=== PATIENT | female | born 1995 | race Caucasian/White ===

== ENCOUNTER 2017-09-05 09:20 | Emergency (ER) | payer BC, SELFPAY ==
[2017-09-05 09:38] VITALS: BP 118/66; PULSE 90; RESP 20; TEMP 36.3; O2SAT 96; BMI 18.1
--- NOTE | 2017-09-05 10:11 | HMH.EDUTC ---
[facility] [place] Clinical Impression: Viral illness Disposition: Home, Self-Care Condition on Discharge: Good Instructions: DI for Viral Upper Respiratory Infection -- Adult Additional Instructions: * No sign of bacterial infection. Likely viral. Virus can take 7-14 days to run their course. Still the possibility of mono with a false negative today so be sure if symptoms persist longer then 7-10 days or you are not seeing any improvement over the next 3-4 days, you follow up. * Monitor Temp. Tylenol every 4 hours as needed no more then 5 times a day or 4000mg in 24 hours and/or ibuprofen every 6 hours as needed no more then 3200mg in 24 hours (as long as your primary care doctor has told you that it is ok to take both) for fever/aches/pain. ER if fever no less than 101 despite tylenol and ibuprofen * Encourage fluids, water, gatorade, powerade, pedialyte if infant/toddler/child * warm salt water gargles * warm fluids * sore throat lozenges * sleep elevated * humidifier/vaporizer * Bromfed may cause drowsiness. Know how it effects you (or your child) before driving, caring for small children, or sending your child to school. No other antihistamines/allergy medications while taking bromfed. * * Your throat swab was sent for culture. Those results are typically sent to your primary care. Be sure to follow up in 2-3 days if no improvement so they can review those results and treat if necessary. If you don't have primary care, I recommend you get one but in the mean time, you will have to return to a walk in clinic. Follow up IMMEDIATELY for new or worsening symptoms OR no noticeable improvement over the next 48-72 hours. 911 for difficulty breathing or swallowing. Prescriptions: Brompheniramine/Pseudoephed/Dm [Bromfed DM Cough Syrup 5mL] 10 ml PO QID PRN #240 ml PRN Reason: Cough Referrals: Kenneth Hughes MD [Primary Care Provider] - Forms: Work/School Release Time of Disposition: 10:54 Medical Decision Making Vital Signs: 09/05/17 09:38 Temperature 97.4 F L Temperature Source Temporal Artery Scan Pulse Rate [Radial] 90 Respiratory Rate 20 Blood Pressure [Right Arm] 118/66 Blood Pressure Mean [Right Arm] 83 Blood Pressure Source [Right Arm] Automatic Cuff Blood Pressure Position [Right Arm] Sitting 02 Sat by Pulse Oximetry 96 Oxygen Delivery Method Room Air - Lab Data Lab Results 09/05/17 10:15: Influenza Type A Ag Negative, Influenza Type B Ag Negative, Strep Scn Rapid [facility] 09/05/17 10:24: Monoscreen Negative Orders (Tests/Meds): ORDERS Category Date Time Status Strep Screen Confirmation Stat Micro 09/05/17 10:15 Received - Wally Inquiry Pt receiving controlled substance: No [facility] [place] - General Stated complaint: congestion,body aches Time Seen by Provider: 09/05/17 10:05 Mode of Arrival: Ambulatory Source of Information: Patient Limitations: No Limitations Description of Symptoms (Recalled from Triage Doc. by RN): congestion and sinus pressure since friday HE Symptoms (Recalled from RN notes): No Resp Symptoms (Recalled from RN notes): No Skin Symptoms (Recalled from RN notes): No MS Symptoms (Recalled from RN notes): No Functional Status (Recalled from RN notes): na - History of Present Illness Provider Complaint: c/o multiple symptoms since Friday, 5 days ago. I would bet money on it that it is mono . Hx of mono and reports this feels the same. Rhinorrhea, nasal congestion, sore throat, productive cough, yellow sputum, sore throat, lymphadenopathy, wesly ear pressure, all reported. Theraflu has barely helped. Has had flu vaccine. No known sick contacts. - Related Data Home Medications Medication Instructions Recorded Confirmed Escitalopram Oxalate [Lexapro] 5 mg PO DAILY MDD 5 MG 09/05/17 09/05/17 Levonorgestrel-Ethin Estradiol 1 each PO DAILY MDD 1 tab 09/05/17 09/05/17 [Sronyx 0.10-0.02 mg Tablet] Previous Rx's Medication Instructions
--- NOTE | 2017-09-05 10:15 | ED_ITS ---
[facility] – [place]position Clinical Impression: Viral illness Disposition: Home, Self-Care Condition on Discharge: Good Instructions: DI for Viral Upper Respiratory Infection -- Adult Additional Instructions: * No sign of bacterial infection. Likely viral. Virus can take 7-14 days to run their course. Still the possibility of mono with a false negative today so be sure if symptoms persist longer then 7-10 days or you are not seeing any improvement over the next 3-4 days, you follow up. * Monitor Temp. Tylenol every 4 hours as needed no more then 5 times a day or 4000mg in 24 hours and/or ibuprofen every 6 hours as needed no more then 3200mg in 24 hours (as long as your primary care doctor has told you that it is ok to take both) for fever/aches/pain. ER if fever no less than 101 despite tylenol and ibuprofen * Encourage fluids, water, gatorade, powerade, pedialyte if /toddler/ child * warm salt water gargles * warm fluids * sore throat lozenges * sleep elevated * humidifier/vaporizer * Bromfed may cause drowsiness. Know how it effects you (or your child) before driving, caring for small children, or sending your child to school. No other antihistamines/allergy medications while taking bromfed. * * Your throat swab was sent for culture. Those results are typically sent to your primary care. Be sure to follow up in 2-3 days if no improvement so they can review those results and treat if necessary. If you don't have primary care , I recommend you get one but in the mean time, you will have to return to a walk in clinic. Follow up IMMEDIATELY for new or worsening symptoms OR no noticeable improvement over the next 48-72 hours. 911 for difficulty breathing or swallowing. Prescriptions: Brompheniramine/Pseudoephed/Dm [Bromfed DM Cough Syrup 5mL] 10 ml PO QID PRN # 240 ml PRN Reason: Cough Referrals: Kenneth Hughes MD [Primary Care Provider] - Forms: Work/School Release Time of Disposition: 10:54 Medical Decision Making Vital Signs: 09/05/17 09:38 Temperature 97.4 F L Temperature Source Temporal Artery Scan Pulse Rate [Radial] 90 Respiratory Rate 20 Blood Pressure [Right Arm] 118/66 Blood Pressure Mean [Right Arm] 83 Blood Pressure Source [Right Arm] Automatic Cuff Blood Pressure Position [Right Arm] Sitting 02 Sat by Pulse Oximetry 96 Oxygen Delivery Method Room Air - Lab Data Lab Results 09/05/17 10:15: Influenza Type A Ag Negative, Influenza Type B Ag Negative, Strep Scn Rapid [facility] 09/05/17 10:24: Monoscreen Negative Orders (Tests/Meds): ORDERS Category Date Time Status Strep Screen Confirmation Stat Micro 09/05/17 10:15 Received - Wally Inquiry Pt receiving controlled substance: No [facility] [place] HPI - General Stated complaint: congestion,body aches Time Seen by Provider: 09/05/17 10:05 Mode of Arrival: Ambulatory Source of Information: Patient Limitations: No Limitations Description of Symptoms (Recalled from Triage Doc. by RN): congestion and sinus pressure since friday HE Symptoms (Recalled from RN notes): No Resp Symptoms (Recalled from RN notes): No Skin Symptoms (Recalled from RN notes): No MS Symptoms (Recalled from RN notes): No Functional Status (Recalled from RN notes): na - History of Present Illness Provider Complaint: c/o multiple symptoms since Friday, 5 days ago. I would bet money on it that it is mono . Hx of mono and reports this feels the same. Vineet
[2017-09-05 10:29] LABS: UTC Influenza A Antigen Negative (Negative); UTC Influenza B Antigen Negative (Negative)
[2017-09-05 10:35] LABS: Monoscreen (Rapid) Negative (Negative)
== END 2017-09-05 11:00 | disposition home or self-care (01) ==
PROVIDERS: Emergency Provider Nurse Practitioner Family; Family Provider Family Medicine; PCP Family Medicine
DX: B34.9 Viral infection, unspecified (principal)
CPT/HCPCS: 86318; 87276; 87430; 87804; 87880; 99202